=== PATIENT | male | born 1965 | race Caucasian/White ===

== ENCOUNTER 2016-05-31 17:20 | Day surgery (SDC) | payer OTHER ==
[2016-05-31] MEDS ORDERED: KEFZOL 2 GM/D5W 50 ML ONE (17:39)
[2016-05-31] MEDS ORDERED: CLAVE SECONDARY SET 11953 ONE (17:39)
[2016-05-31] MEDS ORDERED: DIPRIVAN 1% ONE (18:38)
[2016-05-31] MEDS ORDERED: FENTANYL ONE (18:39)
[2016-05-31] MEDS ORDERED: VERSED ONE (18:39)
[2016-05-31 21:14] VITALS: BP 120/65
--- NOTE | 2016-05-31 22:00 | OPERATIVE NOTE ---
PROCEDURE DATE: 05/31/2016 SURGEON: Armando Bright MD PREOPERATIVE DIAGNOSIS: Right flank pain with nausea and vomiting and a right ureteral stone. POSTOPERATIVE DIAGNOSIS: Right flank pain with nausea and vomiting and a right ureteral stone. Right ureteral stone is proximal. PROCEDURE PERFORMED: 1. Cystoscopic exam. 2. Right ureteroscopy. 3. Place right double-J stent. ANESTHESIA: General via laryngeal mask. FINDINGS: Cystoscopic exam: Urethra-greater than 21 Polish, without stricture. Prostate- coapting lateral lobes, elevated bladder neck, length approximately 3.5 cm. Bladder-normal ureteral orifices bilaterally. Grade 1 trabeculations. No papillary lesions. Right ureteroscopy reveals no stone below the iliac vessels. The ureter could not be searched past the iliac vessels since it was not dilated. The ureteroscope could not be safely advanced over the iliac vessels. After a double-J stent was placed, there was a large amount of debris and cloudy urine that effluxed. INDICATION FOR PROCEDURE: This 51-year-old male with history of severe right flank pain was seen in the emergency room. He was told he had a right renal stone. The pain returned and when he went back, he had an ultrasound that revealed a 6 mm right mid kidney stone. He states the pain recurred again and he was seen in the clinic. DESCRIPTION OF PROCEDURE: After informed consent was obtained from the patient and him receiving IV antibiotics, he was taken to the main OR cystoscopy room, placed in the supine position. General anesthesia via laryngeal mask was achieved. He was then placed in the lithotomy position and prepped and draped in the usual sterile fashion for cystoscopic exam. A 21-Polish cystoscope was passed through the patient's urethra, prostate, and bladder with findings noted above. A 0.035 zip wire was passed through the cystoscope, engaged right ureteral orifice, advanced up into the kidney. The cystoscope was removed leaving the zip wire in place to act as a safety wire. A 7-Polish Storz semi-rigid ureteroscope was advanced through the patient's urethra, prostate, and into the bladder. A 0.035 Sensor wire was passed through the ureteroscope and into the ureter. The ureteroscope again would not advanced past the iliac vessels safely. No stone was visualized in the part that could be seen up to the iliac vessels and a little proximal. The ureteroscope was removed. A 6-Polish, 24 cm double-J stent was passed over the zip wire. When the double-J stent was placed, a large amount of cloudy efflux with debris returned. The stent removal string was removed. The bladder was drained. Cystoscope was removed. exam was performed that revealed significant phimosis secondary to BXO of the foreskin. Scrotal exam was normal. Rectal exam revealed a prostate of about 40 g, smooth, and symmetric. ESTIMATED BLOOD LOSS: Zero. He was taken to recovery room in good condition.
--- NOTE | 2016-06-01 09:14 | Diag Imaging Result Document ---
PROCEDURE NAME: FLUROSCOPY CYSTO - 05/31/2016 FLUOROSCOPY AND MULTIPLE VIEWS OF THE ABDOMEN: COMPARISON: Ultrasound 05/29/2016. FINDINGS: The exam was performed by the patient's urologist. Ten images were submitted. There was placement of a right nephroureteral stent in good position. IMPRESSION: No evidence of complication.
[2016-06-01] MEDS ORDERED: DECADRON ONE (11:52)
[2016-06-01] MEDS ORDERED: XYLOCAINE-MPF 2% ONE (11:52)
[2016-06-01] MEDS ORDERED: EXTENSION SET 32 IN 4522 ONE (11:52)
[2016-06-01] MEDS ORDERED: LR 1,000 ML ONE (11:52)
[2016-06-01] MEDS ORDERED: ZOFRAN ONE (11:52)
[2016-06-01] MEDS ORDERED: ANESTHESIA PB SET 88 IN 5742 ONE (11:52)
== END 2016-05-31 21:17 | disposition home or self-care (01) ==
LOC: OR 17:20 → 4N 17:21 → UNDOADMOB 17:21 → OR 21:17 → UNDODISOB 21:17
PROVIDERS: ATTEND Urology
DX: N20.1 Calculus of ureter (principal); N47.1 Phimosis; N32.89 Other specified disorders of bladder
CPT/HCPCS: 76000; C2617; J0690; J1100; J2250; J2405; J3010; J7120